=== PATIENT | female | born 1960 | race Caucasian/White ===

== ENCOUNTER 2016-06-15 10:52 | Inpatient (IN) | payer OTHER ==
[~2016-06-15] VITALS: Ht 157.5 cm; Wt 82.7 kg
[2016-06-18] MEDS ORDERED: CALC1TAB87 PO (08:56)
[2016-06-18] MEDS ORDERED: MULT1TAB84 PO (08:56)
[2016-06-18] MEDS ORDERED: [UNRECOGNIZED DRUG - CODE] PO (10:41)
[2016-06-18] MEDS ORDERED: FOLI1TAB4 PO (10:41)
[2016-06-18] MEDS ORDERED: HYDR25TA5 PO (10:41)
[2016-06-18] MEDS ORDERED: NEXI40CA PO (10:41)
[2016-06-18] MEDS ORDERED: EVEN10003 PO (10:42)
[2016-06-18] MEDS ORDERED: MELO-1 PO (10:42)
[2016-06-18] MEDS ORDERED: BIOT1000 PO (10:42)
[2016-06-18] MEDS ORDERED: POTA99TA PO (10:44)
[2016-06-18] MEDS ORDERED: MAGN250T2 PO (10:44)
[2016-06-28] MEDS ORDERED: SODIUM CHLORID 0.9% 500 ML IV SCH (05:45)
[2016-06-28] MEDS ORDERED: INSULIN HUMAN REGULAR 1,000 UNITS/10 ML VIAL SQ PRN (05:45)
[2016-06-28] MEDS ORDERED: METOPROLOL TARTRATE 25 MG TAB PO PRN (05:45)
[2016-06-28] MEDS ORDERED: EXPAREL PERI-ARTICULAR INJECTION (TOTAL VOL. 60 ML) P-ARTICULR SCH ×2 (05:45)
[2016-06-28 05:51] VITALS: BP 154/83; PULSE 99; RESP 16; TEMP 98.7; O2SAT 100
[2016-06-28] MEDS ORDERED: METH2.5T PO (05:51)
[2016-06-28] MEDS: LACTATED RINGER'S 1000 ML IV SCH (05:54)
[2016-06-28] MEDS ORDERED: FAMOTIDINE 20 MG/2 ML VIAL ONE (06:39)
[2016-06-28] MEDS ORDERED: MIDAZOLAM HCL 2 MG/2 ML VIAL ONE (06:39)
[2016-06-28] MEDS ORDERED: DEXAMETHASONE SOD PHOS 4 MG/ML VIAL ONE (06:46)
[2016-06-28] MEDS ORDERED: fentaNYL CITRATE 250 MCG/5 ML AMP ONE (06:49)
[2016-06-28] MEDS ORDERED: ACETAMINOPHEN 1000 MG/100 ML VIAL IV ONE (06:49)
[2016-06-28] MEDS ORDERED: SCOPOLAMINE 1.5 MG PATCH ONE (06:50)
[2016-06-28] MEDS ORDERED: SODIUM CHLORIDE 0.9% FLUSH 5 ML FLUSH IVF PRN (07:00)
[2016-06-28] MEDS ORDERED: Post-op Orders (for Pharmacy) MISC XX ONE (07:00)
[2016-06-28] MEDS ORDERED: oxyCODONE/ACETAMINOPHEN 5 MG/325 MG TAB PO PRN (07:00)
[2016-06-28] MEDS ORDERED: ONDANSETRON HCL 4 MG/2 ML VIAL IVP PRN (07:00)
[2016-06-28] MEDS ORDERED: BISACODYL 10 MG SUPP PR PRN (07:00)
[2016-06-28] MEDS ORDERED: MAGNESIUM HYDROXIDE SUSP 30 ML CUP PO PRN (07:00)
[2016-06-28] MEDS ORDERED: ZOLPIDEM TARTRATE 5 MG TAB PO PRN (07:00)
[2016-06-28] MEDS ORDERED: MORPHINE SULFATE 8 MG/ML INJ IV PUSH PRN (07:00)
[2016-06-28] MEDS ORDERED: ceFAZolin 2 GM PREMIX 50 ML ONE (07:01)
[2016-06-28] MEDS ORDERED: ceFAZolin 2 GM PREMIX 50 ML IV SCH (07:45)
[2016-06-28] MEDS ORDERED: SODIUM CHLORIDE 0.9% IV SCH ×2 (07:45→10:00)
[2016-06-28] MEDS ORDERED: CHLORHEXIDINE GLUCONATE 4% SOLN 120 ML BTL TOP SCH (07:45)
[2016-06-28] MEDS ORDERED: TRANEXAMIC ACID IV SCH ×2 (07:45→10:00)
[2016-06-28] MEDS ORDERED: GENTAMICIN SULFATE 80 MG/2 ML VIAL IRRIGATION ONE (08:26)
[2016-06-28] MEDS: ESTROGEN/METHYLTESTOSTERONE 1.25 MG/2.5 MG TAB PO SCH (09:00)
[2016-06-28] MEDS: HYDROCHLOROTHIAZIDE 25 MG TAB PO SCH (09:00)
[2016-06-28] MEDS: FOLIC ACID 1 MG TAB PO SCH (09:00)
[2016-06-28] MEDS ORDERED: NON-FORMULARY DRUG (Magnesium 250 MG) PO SCH (09:00)
[2016-06-28] MEDS: PANTOPRAZOLE SOD 40 MG DELAYED RELEASE TAB PO SCH (09:00)
[2016-06-28] MEDS ORDERED: NON-FORMULARY DRUG (Biotin 1,000 MG) PO SCH (09:00)
[2016-06-28] MEDS: MULTIVITAMINS/MINERALS THERAPEUTIC TAB PO SCH (09:00)
[2016-06-28] MEDS: ASPIRIN EC 81 MG TABEC PO SCH ×2 (09:00→20:12)
[2016-06-28] MEDS: SODIUM CHLORIDE 0.9% FLUSH 5 ML FLUSH IVF SCH ×2 (09:00→20:12)
[2016-06-28] MEDS ORDERED: EVENING PRIMROSE OIL PO SCH (09:00)
[2016-06-28] MEDS ORDERED: NON-FORMULARY DRUG (Potassium 1 TAB) PO SCH (09:00)
[2016-06-28] MEDS ORDERED: *morphine SULFATE 8 MG/ML PERIprocedure ONLY ONE ×2 (09:38→09:45)
[2016-06-28] MEDS ORDERED: DO NOT ADM ANY ANTICOAGULANT DRUGS XX PRN (09:45)
--- NOTE | 2016-06-28 10:03 | RADRPT ---
EXAM DATE/TIME: 06/28/2016 09:36 [place] COMPARISON: No previous studies available for comparison. INDICATIONS : Post op right hip. MEDICAL HISTORY : None. SURGICAL HISTORY : None. ENCOUNTER: Initial ACUITY: 1 day PAIN SCORE: 8/10 LOCATION: Right pelvis FINDINGS: AP and lateral views of the right hip following recent total arthroplasty demonstrates hardware in pl ar without an acute finding identified. There is soft tissue gas as expected. CONCLUSION: Expected findings are present following recent right total hip arthroplasty. Winston Gilbert MD on June 28, 2016 at 10:01 Board Certified Radiologist. This report was verified electronically.
[2016-06-28] MEDS ORDERED: *HYDROmorphone PF 1 MG VIAL PERIprocedural Use ONLY ONE (10:05)
[2016-06-28] MEDS ORDERED: PROPOFOL 200 MG/20 ML AMP IV ONE (10:21)
[2016-06-28] MEDS ORDERED: ONDANSETRON HCL 4 MG/2 ML VIAL IV PUSH ONE (10:22)
[2016-06-28] MEDS ORDERED: NEOSTIGMINE 3 MG/3 ML SYR IV ONE (10:22)
[2016-06-28] MEDS ORDERED: LACTATED RINGER'S 1000 ML INJ 1,000 ML IV ONE (10:22)
[2016-06-28] MEDS: SODIUM CHLORIDE 0.9% IV SCH (11:00)
[2016-06-28] MEDS: TRANEXAMIC ACID IV SCH (11:00)
[2016-06-28] MEDS: LACTATED RINGER'S 1000 ML INJ 1,000 ML IV SCH ×2 (11:07→19:29)
--- NOTE | 2016-06-28 12:03 | MP ---
cc: Amos BENNETT. DATE OF SURGERY: 06/28/2016 PREOPERATIVE DIAGNOSIS Primary osteoarthritis, right hip. POSTOPERATIVE DIAGNOSIS Primary osteoarthritis, right hip. OPERATION PERFORMED Right total hip arthroplasty using Sarah prosthesis. SURGEON Fidencio Bennett MD DIRECTOR OF PURCHASING Amisha Wagner, MADIE ANESTHESIA General endotracheal with supplemental local. INDICATIONS AND FINDINGS This 55-year-old woman has had longstanding arthritis in her right hip which has been causing significant pain and inability to do activities of daily living for at least the past five months. This has been progressively worsening with groin pain radiating down the thigh to the knee with giving-way and difficulty ascending and descending stairs. She has been treated with anti-inflammatories, analgesics, activity modification, ambulatory aids, physical therapy and exercise without any benefit. Physical findings showed limitation in motion of the hip with tenderness on motion. X-rays and MRI showed advanced arthritis in the hip with loss of articular cartilage to [id number], particularly in the superior aspect with some cysts and osteophytes. Operative findings were consistent with the radiographic findings with there being loss of articular cartilage to exposed subchondral bone in the upper portions of the hip with small osteophytes and significant subchondral sclerosis. The prosthesis used is a Sarah prosthesis with the acetabulum being a 48 mm tritanium cluster cup with two screws and a 0 degree Trident X3 polyethylene insert. The femoral component was an Accolade II size 3 x 132 degrees with a Biolox Delta head size 32 outer diameter with a +0 neck length. PROCEDURE The patient was brought to the clean-air operating suite where a general anesthetic was administered. She was placed in a lateral position on the [facility] lateral positioner with the right hip up. She was then prepped with alcohol, Hibiclens and ChloraPrep and draped in the usual manner with the hip draped free. An appropriate timeout procedure was carried out. A posterolateral approach was used. Local anesthesia was administered. The incision was then made obliquely over the posterolateral aspect of the greater trochanter centered at approximately 12 cm. The incision was deepened through the subcutaneous tissues to the fascia jaime and gluteus fascia which were incised in line with the fibers of the skin incision. A Charnley retractor was inserted. Hemostasis was achieved throughout the procedure with electrocautery. The hip was internally rotated. The external rotators were released off the posterior aspect of the greater trochanter. The capsule was opened with a posteriorly based flap. The hip was dislocated. The femoral neck was transected about 10 mm from the lesser trochanter. An oscillating saw was used to resect the femoral head. The medullary canal was then prepared after retractors were placed using a box osteotome followed by curet to initiate the proximal reaming followed by broaching using appropriate broaches starting at 0 and going up to 3. A size 3 is seated appropriately. Calcar planing was carried out. The hip was repositioned. With retractors in place the soft tissues were cleaned from the acetabulum. Reaming was then carried out starting with a 43 mm reamer until it medialized to the teardrop followed by continued reaming up to size 48. A 48 mm was trialed which was templated and impacted into place and seated appropriately. This was then removed. The 48 mm cluster cup was then impacted into place and seated appropriately. Two additional dome screws were then placed after drilling and sounding. A 0 degree liner was inserted with 32 mm inner diameter. This was impacted into place. The hip was repositioned. The femoral neck trial was positioned for a +4 and then back to a 0 after checking. The leg length at 0 was appropriate with no pistoning and excellent stability and excellent motion. The hip was dislocated again. The stem was removed. Local anesthesia was administered throughout the capsule with Exparel. The femoral component, a size 3 x 132 degrees Accolade II stem, was impacted into place and seated appropriately. A trial reduction was carried out again with the 0 and showed the same findings. The trial prosthesis was removed. The neck was cleaned with saline and dried completely. The Biolox Delta 32 mm x 0 neck length was impacted onto the cleaned and dried trunnion. The hip was reduced. The range of motion was excellent. The stability was excellent. There was no pistoning. The leg length was appropriate. The remainder of the Exparel was injected throughout the hip. The external rotators and capsule were then repaired to the posterior aspect of the greater trochanter through drill holes into bone using a Parker Fadi technique and Krackow technique. After these were repaired into position the sciatic nerve was again inspected and identified as being unmolested throughout the procedure. The fascia jaime and gluteus fascia were repaired with #1 Vicryl interrupted [id number] sutures. The subcutaneous tissue was closed with 2-0 Vicryl interrupted simple sutures with buried knots. The skin was closed with continuous subcuticular closure with 4-0 Monocryl. The wound was dressed with Steri-Strips followed by dry dressing, ABD and Medipore compression hip dressing. The patient was transferred from the operating room to the recovery room in satisfactory condition having tolerated the procedure well. She was in a knee immobilizer on this side. Counts were correct. Specimens none. Estimated blood loss 300 mL. MD RAYNE Gray/VALENTIN /9:23 AM /11:44 AM
--- NOTE | 2016-06-28 13:55 | PD.CONS ---
HPI Service [facility] Consult Requested By Dr. Allan Reason for Consult medical management Primary Care Physician Non-Staff Diagnoses: History of Present Illness patient is a 55 y/o female with history of osteoarthritis and rheumatoid arthritis who underwent right total hip arthroplasty today. at the time of my evaluation she was resting comfortably with no distress. pain was controlled at the time of my evaluation. she denies any chest pain, sob, nausea or vomiting. Review of Systems Constitutional: DENIES: Fever, Weight loss, Chills, Night Sweats Eyes: DENIES: Blurred vision, Diplopia, Vision loss, Double Vision Ears, nose, mouth, throat: DENIES: Tinnitus, Vertigo, Throat pain, Epistaxis Respiratory: DENIES: Apneas, Cough, Snoring, Wheezing, Hemoptysis, Sputum production, Shortness of breath Cardiovascular: DENIES: Chest pain, Palpitations, Syncope, Dyspnea on Exertion , PND, Lower Extremity Edema, Orthopnea, Claudication Gastrointestinal: DENIES: Abdominal pain, Black stools, Bloody stools, Constipation, Diarrhea, Nausea, Vomiting, Difficulty Swallowing, Anorexia Genitourinary: DENIES: Urinary frequency, Urgency, Hematuria, Dysuria Musculoskeletal: DENIES: Joint pain, Muscle aches, Stiffness, Joint Swelling Integumentary: DENIES: Rash Neurologic: DENIES: Abnormal gait, Headache, Localized weakness, Paresthesias, Seizures, Speech Problems, Tremor, Poor Balance Psychiatric: DENIES: Anxiety, Confusion, Mood changes, Depression, Hallucinations, Agitation, Suicidal Ideation, Homicidal Ideation, Delusions Past Family Social History Allergies: Coded Allergies: No Known Allergies (Unverified , 06/18/16) Past Medical History osteoarthritis rheumatoid arthritis Past Surgical History partial hysterectomy cyst removal from the foot Reported Medications HCTZ methotrexate folic acid meloxicam nexium estrogen Active Ordered Medications Current Medications Bupivacaine Liposome 20 ml/ Sodium Chloride 60 ml @ 120 mls/hr ONCE P-ARTICULR Last administered on 06/28/16 07:42; Start 06/28/16 at 05:45; Stop 06/28/16 at 16:00 Lactated Ringer's 1,000 ml @ 30 mls/hr Q24H IV Last administered on 06/28/16 05:54; Start 06/28/16 at 05:45 Sodium Chloride (NS 500 ml Inj) 500 ml @ 30 mls/hr [id number] IV ; Start 06/28/16 at 05:45; Stop 06/29/16 at 05:44 Insulin Human Regular (NovoLIN R INJ) See Protocol Table ... UNSCH X1 PRN SQ SEE PROTOCOL; Start 06/28/16 at 05:45; Stop 06/29/16 at 05:44 Metoprolol Tartrate (Lopressor) 25 mg UNSCH X1 PRN PO SEE LABEL COMMENTS; Start 06/28/16 at 05:45; Stop 06/29/16 at 05:44 Midazolam HCl (Versed Inj) 2 mg STK-MED ONCE .ROUTE Last administered on 06:42; Start 06/28/16 at 06:39; Stop 06/28/16 at 06:43; Status DC Famotidine (Pepcid Inj) 20 mg STK-MED ONCE .ROUTE Last administered on 06:40; Start 06/28/16 at 06:39; Stop 06/28/16 at 06:43; Status DC Dexamethasone Sodium Phosphate (Decadron Inj) 4 mg STK-MED ONCE .ROUTE Last administered on 06/28/16 06:46; Start 06/28/16 at 06:46; Stop 06/28/16 at 06:47; Status DC Acetaminophen (Ofirmev Inj) 1,000 mg STK-MED ONCE IV ; Start 06/28/16 at 06:49; Stop 06/28/16 at 06:50; Status DC Fentanyl Citrate (fentaNYL INJ) 100 mcg STK-MED ONCE .ROUTE ; Start 06/28/16 at 06:49; Stop 06/28/16 at 06:50; Status DC Fentanyl Citrate (fentaNYL INJ) 250 mcg STK-MED ONCE .ROUTE ; Start 06/28/16 at 06:49; Stop 06/28/16 at 06:50; Status DC Scopolamine 1 patch 1 patch STK-MED ONCE .ROUTE ; Start 06/28/16 at 06:50; Stop 06/28/16 at 06:51; Status DC Cefazolin Sodium/ Dextrose 50 ml @ As Directed STK-MED ONCE .ROUTE ; Start at 07:01; Stop 06/28/16 at 07:02; Status DC Lactated Ringer's (Lr 1000 ml Inj) 1,000 ml @ 80 mls/hr [id number] IV Last administered on 06/28/16 11:07; Start 06/28/16 at 06:59 IV Flush (NS Flush) 2 ml UNSCH PRN IVF FLUSH AFTER USING IV ACCESS; Start at 07:00 IV Flush 2 ml 2 ml BID IVF ; Start 06/28/16 at 09:00 Cefazolin Sodium/ Sodium Chloride (Ancef Inj/NS Inj) 100 ml @ 200 mls/hr Q6H IV Last administered on 06/28/16 13:00; Start 06/28/16 at 13:00; Stop 06/29/16 at 01:29 Miscellaneous Information (Post-op Orders (for Pharmacy)) STAT ONCE XX ; Start 06/28/16 at 07:00; Stop 06/28/16 at 08:59; Status DC Morphine Sulfate (Morphine Inj) 5 mg Q3H PRN IV PUSH Pain >7 when off PERINATAL SPECIALIST; Start 06/28/16 at 07:00 Oxycodone/ Acetaminophen (Percocet 5-325 Mg) 1 tab Q4H PRN PO PAIN LESS THAN 5 ON SCALE; Start 06/28/16 at 07:00 Oxycodone/ Acetaminophen 2 tab 2 tab Q4H PRN PO PAIN SCALE 5 TO 7; Start at 07:00 Tranexamic Acid/ Sodium Chloride (Cyklokapron Inj/ NS Inj) 108.27 ml @ 200 mls / hr UNSCH IV ; Start 06/28/16 at 10:00; Stop 06/28/16 at 16:00 Ondansetron HCl (Zofran Inj) 4 mg Q6H PRN IVP NAUSEA OR VOMITING; Start at 07:00 Docusate Sodium (Colace) 100 mg BID PO ; Start 06/29/16 at 21:00 Zolpidem Tartrate (Ambien) 5 mg HS PRN PO SLEEP; Start 06/28/16 at 07:00 Bisacodyl (Dulcolax Supp) 10 mg DAILY PRN MD CONSTIPATION; Start 06/28/16 at 07: 00 Magnesium Hydroxide (Milk Of Magnesia Liq) 30 ml DAILY PRN PO CONSTIPATION; Start 06/28/16 at 07:00 Aspirin (Ecotrin Ec) 81 mg BID PO ; Start 06/28/16 at 09:00 Estrogens Conjugated/ Methyltestost (Estratest) 1 tab DAILY PO ; Start 06/28/16 at 09:00 Folic Acid (Folate) 1 mg DAILY PO ; Start 06/28/16 at 09:00 Hydrochlorothiazide (Hydrodiuril) 25 mg DAILY PO ; Start 06/28/16 at 09:00 Multivitamins/ Minerals Therapeutic (Theragran M Tab) 1 tab DAILY PO ; Start 06/28/16 at 09:00 Non-Formulary Medication 1,000 mg DAILY PO ; Start 06/28/16 at 09:00; Stop at 09:00; Status DC Pantoprazole Sodium (Protonix) 40 mg DAILY PO ; Start 06/28/16 at 09:00 Non-Formulary Medication 3 cap DAILY PO ; Start 06/28/16 at 09:00; Stop 06/28/16 at 09:00; Status DC Non-Formulary Medication 250 mg DAILY PO ; Start 06/28/16 at 09:00; Stop 06/28/16 at 09:00; Status DC Non-Formulary Medication 1 tab DAILY PO ; Start 06/28/16 at 09:00; Stop 06/28/16 at 09:00; Status DC Chlorhexidine Gluconate 1 applic 1 applic ONCE TOP ; Start 06/28/16 at 07:45; Stop 07/01/16 at 07:44 Cefazolin Sodium/ Dextrose 50 ml @ 100 mls/hr VOLUNTEER RECRUITMENT COORDINATOR IV Last administered on 06/28/16 07:24; Start 06/28/16 at 07:45; Stop 07/01/16 at 07:44 Tranexamic Acid 827 mg/Sodium Chloride 108.27 ml @ 200 mls/ hr ONCE IV Last administered on 06/28/16 07:45; Start 06/28/16 at 07:45; Stop 06/28/16 at 16:00 Tranexamic Acid/ Sodium Chloride (Cyklokapron Inj/ NS Inj) 108.27 ml @ 200 mls / hr ONCE IV Last administered on 06/28/16 11:00; Start 06/28/16 at 11:00; Stop 06/29/16 at 18:00 Gentamicin Sulfate (Gentamicin Inj) 240 mg STK-MED ONCE IRRIGATION Last administered on 06/28/16 08:26; Start 06/28/16 at 08:26; Stop 06/28/16 at 08:29; Status DC Morphine Sulfate (*morphine INJ PERIprocedure ONLY) 8 mg STK-MED ONCE .ROUTE Last administered on 06/28/16 09:38; Start 06/28/16 at 09:38; Stop 06/28/16 at 09: 39; Status DC Miscellaneous Information ALL NURSING DEPARTME... UNSCH PRN XX SEE LABEL COMMENTS; Start 06/28/16 at 09:45; Stop 06/29/16 at 09:44 Morphine Sulfate (*morphine INJ PERIprocedure ONLY) 8 mg STK-MED ONCE .ROUTE Last administered on 06/28/16 09:45; Start 06/28/16 at 09:45; Stop 06/28/16 at 09: 46; Status DC Hydromorphone HCl (*DILAUDID PF INJ PERIprocedural ONLY) 1 mg STK-MED ONCE .ROUTE Last administered on 06/28/16 10:05; Start 06/28/16 at 10:05; Stop at 10:06; Status DC Family History heart disease in father and stroke in mother. Social History quit smoking years ago- drinks occasionally. Physical Exam Vital Signs Vital Signs Date Time Temp Pulse Resp B/P Pulse Ox O2 Delivery O2 Flow Rate FiO2 06/28/16 13:00 61 16 118/73 99 Nasal Cannula 2 06/28/16 12:30 70 16 122/67 99 Nasal Cannula 2 06/28/16 12:00 90 16 118/71 99 Nasal Cannula 2 06/28/16 11:30 64 16 121/70 99 Nasal Cannula 3 06/28/16 11:00 60 17 120/74 99 Nasal Cannula 3 06/28/16 10:45 77 15 119/71 99 Nasal Cannula 3 06/28/16 10:30 64 15 119/75 100 Nasal Cannula 3 06/28/16 10:15 73 14 136/80 100 Nasal Cannula 3 06/28/16 10:00 66 15 135/72 99 Nasal Cannula 3 06/28/16 09:45 70 14 122/76 99 Nasal Cannula 3 06/28/16 09:31 97.9 73 14 140/74 99 Nasal Cannula 3 06/28/16 05:51 98.7 99 16 154/83 100 Physical Exam GENERAL: This is a well-nourished, well-developed patient, in no apparent distress. SKIN: No rashes, ecchymoses or lesions. Cool and dry. HEAD: Atraumatic. Normocephalic. No temporal or scalp tenderness. EYES: Pupils equal round and reactive. Extraocular motions intact. No scleral icterus. No injection or drainage. ENT: Nose without bleeding, purulent drainage or septal hematoma. Throat without erythema, tonsillar hypertrophy or exudate. Uvula midline. Airway patent. NECK: Trachea midline. No JVD or lymphadenopathy. Supple, nontender, no meningeal signs. CARDIOVASCULAR: Regular rate and rhythm without murmurs, gallops, or rubs. RESPIRATORY: Clear to auscultation. Breath sounds equal bilaterally. No wheezes , rales, or rhonchi. GASTROINTESTINAL: Abdomen soft, non-tender, nondistended. No hepato-splenomegaly , or palpable masses. No guarding. MUSCULOSKELETAL: Extremities without clubbing, cyanosis, or edema. No joint tenderness, effusion, or edema noted. No calf tenderness. Negative Homans sign bilaterally. NEUROLOGICAL: Awake and alert. Cranial nerves II through XII intact. Motor and sensory grossly within normal limits. Five out of 5 muscle strength in all muscle groups. Normal speech. Laboratory Laboratory Tests Test 06/28/16 05:50 Blood Type A POSITIVE Antibody Screen NEGATIVE Assessment and Plan Assessment and Plan A/P - osteoarthritis of the right hip- s/p right total hip arthroplasty continue with pain control and rehab efforts- management per ortho -rheumatoid arthritis; resume methotrexate and folic acid -DVT prophylaxis- per ortho thank you for the consult. Discussed Condition With the patient. Anais Diaz MD Jun 28, 2016 13:55
[2016-06-28 15:05] VITALS: BP 118/59; PULSE 80; RESP 18; TEMP 97.6; O2SAT 100
[2016-06-28] MEDS: oxyCODONE/ACETAMINOPHEN 5 MG/325 MG TAB PO PRN (17:23)
[2016-06-28 20:00] VITALS: BP 129/59; PULSE 84; RESP 16; TEMP 98.5; O2SAT 98
[2016-06-28 22:02] VITALS: O2SAT 100
[2016-06-29] VITALS: BP 114/55; PULSE 72; RESP 16; TEMP 98.7; O2SAT 98
[2016-06-29 04:00] VITALS: BP 117/57; PULSE 86; RESP 17; TEMP 98.9; O2SAT 100
[2016-06-29] MEDS: oxyCODONE/ACETAMINOPHEN 5 MG/325 MG TAB PO PRN ×2 (05:08→09:35)
[2016-06-29] MEDS: LACTATED RINGER'S 1000 ML IV SCH (05:45)
--- NOTE | 2016-06-29 06:18 | PD.ORT.PN ---
Subjective Post Op Day #: 1 Subjective Remarks She is doing well, with minimal incisional pain. Distance Walked 45 feet. Objective Vitals Vital Signs Date Time Temp Pulse Resp B/P Pulse Ox O2 Delivery O2 Flow Rate FiO2 06/29/16 04:00 98.9 86 17 117/57 100 06/29/16 00:00 98.7 72 16 114/55 98 06/28/16 22:02 100 21 06/28/16 20:00 98.5 84 16 129/59 98 06/28/16 15:05 97.6 80 18 118/59 100 06/28/16 14:00 97.6 85 17 126/73 98 Room Air 06/28/16 13:00 61 16 118/73 99 Nasal Cannula 2 06/28/16 12:30 70 16 122/67 99 Nasal Cannula 2 06/28/16 12:00 90 16 118/71 99 Nasal Cannula 2 06/28/16 11:30 64 16 121/70 99 Nasal Cannula 3 06/28/16 11:00 60 17 120/74 99 Nasal Cannula 3 06/28/16 10:45 77 15 119/71 99 Nasal Cannula 3 06/28/16 10:30 64 15 119/75 100 Nasal Cannula 3 06/28/16 10:15 73 14 136/80 100 Nasal Cannula 3 06/28/16 10:00 66 15 135/72 99 Nasal Cannula 3 06/28/16 09:45 70 14 122/76 99 Nasal Cannula 3 06/28/16 09:31 97.9 73 14 140/74 99 Nasal Cannula 3 I/O 06/28/16 06/28/16 06/28/16 06/29/16 06/29/16 06/29/16 07:00 15:00 23:00 07:00 15:00 23:00 Intake Total 1850 ml 240 ml 1422 ml Output Total 250 ml Balance 1600 ml 240 ml 1422 ml Intake Oral 240 ml IV Total 750 ml 1422 ml Other 1100 ml Output Urine Total 0 ml Estimated Blood Loss 250 ml # Voids 0 1 # Bowel Movements 0 Imaging Last 24 hours Impressions Hip X-Ray 06/28/16 0659 Signed Impressions: Service Date/Time: Tuesday, June 28, 2016 09:36 - CONCLUSION: Expected findings are present following recent right total hip arthroplasty. Winston Gilbert MD Objective Remarks Resting comfortably, supine in bed. The original dressing is dry and intact. The neurovascular status is intact. Assessment & Plan Ortho Post Op Day #: 1 Problem List: (1) Status post total hip replacement, right Assessment and Plan Condition: Good. Orthopaedically stable. DVT prophylaxis: TEDs, sequentials, ASA. Discharge plans: Home with [facility]. Has appointment. Rx Percocet Neida Allan MD (Charles) Jun 29, 2016 06:18
[2016-06-29] MEDS ORDERED: ASPI81TA11 PO (06:36)
[2016-06-29] MEDS ORDERED: OXYC1TAB63 PO (06:36)
--- NOTE | 2016-06-29 06:40 | HHI.FF ---
Face to Face Verification Diagnosis: (1) Status post total hip replacement, right Physical Therapy Gait training Hip: Total hip, Protocol: Right, Posterior hip precautions, Progress to weight bearing Canvas Knee Splint: When in bed & 2 pillows btw thighs Right LE Weight Bearing: WB as tolerated Right LE Range of Motion: Active ROM Nursing Nursing: Dressing changes Dressing Changes: Daily dressing change, Coverderm/Primapore Additional Instructions Remove steristrips on postop day 14. I have seen patient Gabriella Obrien on 06/29/16. My clinical findings support the need for the requested home health care services because: Ltd mobility - disease progression Limited ability to care for self High risk of falls I certify that my clinical findings support that this patient is homebound because: Post-op weakness Unsteady gait/balance Unsafe to leave home unassisted Neida Allan MD (Charles) Jun 29, 2016 06:40
[2016-06-29 07:18] LABS: HEMATOCRIT 31.8 % (35.0-46.0); REVIEW FLAG FINAL
[2016-06-29] MEDS: LACTATED RINGER'S 1000 ML INJ 1,000 ML IV SCH (07:59)
[2016-06-29 08:00] VITALS: BP 122/63; PULSE 75; RESP 18; TEMP 98.8; O2SAT 99
[2016-06-29 08:37] VITALS: O2SAT 98
[2016-06-29] MEDS: ESTROGEN/METHYLTESTOSTERONE 1.25 MG/2.5 MG TAB PO SCH (09:00)
[2016-06-29] MEDS ORDERED: MAGNESIUM HYDROXIDE SUSP 30 ML CUP PO SCH (09:15)
[2016-06-29] MEDS: ASPIRIN EC 81 MG TABEC PO SCH (09:33)
[2016-06-29] MEDS: HYDROCHLOROTHIAZIDE 25 MG TAB PO SCH (09:33)
[2016-06-29] MEDS: PANTOPRAZOLE SOD 40 MG DELAYED RELEASE TAB PO SCH (09:33)
[2016-06-29] MEDS: FOLIC ACID 1 MG TAB PO SCH (09:33)
[2016-06-29] MEDS: MULTIVITAMINS/MINERALS THERAPEUTIC TAB PO SCH (09:33)
[2016-06-29] MEDS: SODIUM CHLORIDE 0.9% FLUSH 5 ML FLUSH IVF SCH (09:38)
[2016-06-29] MEDS: TRANEXAMIC ACID IV SCH (11:00)
[2016-06-29] MEDS: SODIUM CHLORIDE 0.9% IV SCH (11:00)
--- NOTE | 2016-06-29 11:20 | HHI.PR ---
Subjective Remarks resting comfortably with no distress. pain is controlled. no new complaints. Objective Vitals Vital Signs Date Time Temp Pulse Resp B/P Pulse Ox O2 Delivery O2 Flow Rate FiO2 06/29/16 08:37 98 21 06/29/16 08:00 98.8 75 18 122/63 99 06/29/16 04:00 98.9 86 17 117/57 100 06/29/16 00:00 98.7 72 16 114/55 98 06/28/16 22:02 100 21 06/28/16 20:00 98.5 84 16 129/59 98 06/28/16 15:05 97.6 80 18 118/59 100 06/28/16 14:00 97.6 85 17 126/73 98 Room Air 06/28/16 13:00 61 16 118/73 99 Nasal Cannula 2 06/28/16 12:30 70 16 122/67 99 Nasal Cannula 2 06/28/16 12:00 90 16 118/71 99 Nasal Cannula 2 06/28/16 11:30 64 16 121/70 99 Nasal Cannula 3 I/O 06/28/16 06/28/16 06/28/16 06/29/16 06/29/16 06/29/16 07:00 15:00 23:00 07:00 15:00 23:00 Intake Total 1850 ml 240 ml 1662 ml Output Total 250 ml Balance 1600 ml 240 ml 1662 ml Intake Oral 240 ml 240 ml IV Total 750 ml 1422 ml Other 1100 ml Output Urine Total 0 ml Estimated Blood Loss 250 ml # Voids 0 1 2 # Bowel Movements 0 0 Result Diagram: 06/29/16 0703 Imaging Last Impressions Hip X-Ray 06/28/16 0659 Signed Impressions: Service Date/Time: Tuesday, June 28, 2016 09:36 - CONCLUSION: Expected findings are present following recent right total hip arthroplasty. Winston Gilbert MD Objective Remarks GENERAL: This is a well-nourished, well-developed patient, in no apparent distress. CARDIOVASCULAR: Regular rate and regular rhythm without murmurs, gallops, or rubs. RESPIRATORY: Clear to auscultation. Breath sounds equal bilaterally. No wheezes , rales, or rhonchi. GASTROINTESTINAL: Abdomen soft, non-tender, nondistended. Normal, active bowel sounds MUSCULOSKELETAL: Extremities without clubbing, cyanosis, or edema. NEURO: Alert & Oriented x4 to person, place, time, situation. Moves all ext x4 Medications and IVs Current Medications Bupivacaine Liposome 20 ml/ Sodium Chloride 60 ml @ 120 mls/hr ONCE P-ARTICULR Last administered on 06/28/16 07:42; Start 06/28/16 at 05:45; Stop 06/28/16 at 16:00; Status DC Lactated Ringer's 1,000 ml @ 30 mls/hr Q24H IV Last administered on 06/28/16 05:54; Start 06/28/16 at 05:45 Sodium Chloride (NS 500 ml Inj) 500 ml @ 30 mls/hr [id number] IV ; Start 06/28/16 at 05:45; Stop 06/29/16 at 05:44; Status DC Insulin Human Regular (NovoLIN R INJ) See Protocol Table ... UNSCH X1 PRN SQ SEE PROTOCOL; Start 06/28/16 at 05:45; Stop 06/29/16 at 05:44; Status DC Metoprolol Tartrate (Lopressor) 25 mg UNSCH X1 PRN PO SEE LABEL COMMENTS; Start 06/28/16 at 05:45; Stop 06/29/16 at 05:44; Status DC Midazolam HCl (Versed Inj) 2 mg STK-MED ONCE .ROUTE Last administered on 06:42; Start 06/28/16 at 06:39; Stop 06/28/16 at 06:43; Status DC Famotidine (Pepcid Inj) 20 mg STK-MED ONCE .ROUTE Last administered on 06:40; Start 06/28/16 at 06:39; Stop 06/28/16 at 06:43; Status DC Dexamethasone Sodium Phosphate (Decadron Inj) 4 mg STK-MED ONCE .ROUTE Last administered on 06/28/16 06:46; Start 06/28/16 at 06:46; Stop 06/28/16 at 06:47; Status DC Acetaminophen (Ofirmev Inj) 1,000 mg STK-MED ONCE IV ; Start 06/28/16 at 06:49; Stop 06/28/16 at 06:50; Status DC Fentanyl Citrate (fentaNYL INJ) 100 mcg STK-MED ONCE .ROUTE ; Start 06/28/16 at 06:49; Stop 06/28/16 at 06:50; Status DC Fentanyl Citrate (fentaNYL INJ) 250 mcg STK-MED ONCE .ROUTE ; Start 06/28/16 at 06:49; Stop 06/28/16 at 06:50; Status DC Scopolamine 1 patch 1 patch STK-MED ONCE .ROUTE ; Start 06/28/16 at 06:50; Stop 06/28/16 at 06:51; Status DC Cefazolin Sodium/ Dextrose 50 ml @ As Directed STK-MED ONCE .ROUTE ; Start at 07:01; Stop 06/28/16 at 07:02; Status DC Lactated Ringer's (Lr 1000 ml Inj) 1,000 ml @ 80 mls/hr [id number] IV Last administered on 06/28/16 11:07; Start 06/28/16 at 06:59 IV Flush (NS Flush) 2 ml UNSCH PRN IVF FLUSH AFTER USING IV ACCESS; Start at 07:00 IV Flush 2 ml 2 ml BID IVF Last administered on 06/29/16 09:38; Start 06/28/16 at 09:00 Cefazolin Sodium/ Sodium Chloride (Ancef Inj/NS Inj) 100 ml @ 200 mls/hr Q6H IV Last administered on 06/29/16 00:57; Start 06/28/16 at 13:00; Stop 06/29/16 at 01:29; Status DC Miscellaneous Information (Post-op Orders (for Pharmacy)) STAT ONCE XX ; Start 06/28/16 at 07:00; Stop 06/28/16 at 08:59; Status DC Morphine Sulfate (Morphine Inj) 5 mg Q3H PRN IV PUSH Pain >7 when off [employer]; Start 06/28/16 at 07:00 Oxycodone/ Acetaminophen (Percocet 5-325 Mg) 1 tab Q4H PRN PO PAIN LESS THAN 5 ON SCALE Last administered on 06/29/16 09:35; Start 06/28/16 at 07:00 Oxycodone/ Acetaminophen 2 tab 2 tab Q4H PRN PO PAIN SCALE 5 TO 7; Start at 07:00 Tranexamic Acid/ Sodium Chloride (Cyklokapron Inj/ NS Inj) 108.27 ml @ 200 mls / hr UNSCH IV ; Start 06/28/16 at 10:00; Stop 06/28/16 at 16:00; Status DC Ondansetron HCl (Zofran Inj) 4 mg Q6H PRN IVP NAUSEA OR VOMITING; Start at 07:00 Docusate Sodium (Colace) 100 mg BID PO ; Start 06/29/16 at 21:00 Zolpidem Tartrate (Ambien) 5 mg HS PRN PO SLEEP; Start 06/28/16 at 07:00 Bisacodyl (Dulcolax Supp) 10 mg DAILY PRN [place] CONSTIPATION; Start 06/28/16 at 07: 00 Magnesium Hydroxide (Milk Of Magnesia Liq) 30 ml DAILY PRN PO CONSTIPATION; Start 06/28/16 at 07:00; Stop 06/29/16 at 09:13; Status DC Aspirin (Ecotrin Ec) 81 mg BID PO Last administered on 06/29/16 09:33; Start at 09:00 Estrogens Conjugated/ Methyltestost (Estratest) 1 tab DAILY PO ; Start 06/28/16 at 09:00 Folic Acid (Folate) 1 mg DAILY PO Last administered on 06/29/16 09:33; Start at 09:00 Hydrochlorothiazide (Hydrodiuril) 25 mg DAILY PO Last administered on 06/29/16 09:33; Start 06/28/16 at 09:00 Multivitamins/ Minerals Therapeutic (Theragran M Tab) 1 tab DAILY PO Last administered on 06/29/16 09:33; Start 06/28/16 at 09:00 Non-Formulary Medication 1,000 mg DAILY PO ; Start 06/28/16 at 09:00; Stop at 09:00; Status DC Pantoprazole Sodium (Protonix) 40 mg DAILY PO Last administered on 06/29/16 09: 33; Start 06/28/16 at 09:00 Non-Formulary Medication 3 cap DAILY PO ; Start 06/28/16 at 09:00; Stop 06/28/16 at 09:00; Status DC Non-Formulary Medication 250 mg DAILY PO ; Start 06/28/16 at 09:00; Stop 06/28/16 at 09:00; Status DC Non-Formulary Medication 1 tab DAILY PO ; Start 06/28/16 at 09:00; Stop 06/28/16 at 09:00; Status DC Chlorhexidine Gluconate 1 applic 1 applic ONCE TOP ; Start 06/28/16 at 07:45; Stop 07/01/16 at 07:44 Cefazolin Sodium/ Dextrose 50 ml @ 100 mls/hr [employer]AF[employer] SPECIALIST IV Last administered on 06/28/16 07:24; Start 06/28/16 at 07:45; Stop 07/01/16 at 07:44 Tranexamic Acid 827 mg/Sodium Chloride 108.27 ml @ 200 mls/ hr ONCE IV Last administered on 06/28/16 07:45; Start 06/28/16 at 07:45; Stop 06/28/16 at 16:00; Status DC Tranexamic Acid/ Sodium Chloride (Cyklokapron Inj/ NS Inj) 108.27 ml @ 200 mls / hr ONCE IV Last administered on 06/28/16 11:00; Start 06/28/16 at 11:00; Stop 06/29/16 at 18:00 Gentamicin Sulfate (Gentamicin Inj) 240 mg STK-MED ONCE IRRIGATION Last administered on 06/28/16 08:26; Start 06/28/16 at 08:26; Stop 06/28/16 at 08:29; Status DC Morphine Sulfate (*morphine INJ PERIprocedure ONLY) 8 mg STK-MED ONCE .ROUTE Last administered on 06/28/16 09:38; Start 06/28/16 at 09:38; Stop 06/28/16 at 09: 39; Status DC Miscellaneous Information ALL NURSING DEPARTME... UNSCH PRN XX SEE LABEL COMMENTS; Start 06/28/16 at 09:45; Stop 06/29/16 at 09:44; Status DC Morphine Sulfate (*morphine INJ PERIprocedure ONLY) 8 mg STK-MED ONCE .ROUTE Last administered on 06/28/16 09:45; Start 06/28/16 at 09:45; Stop 06/28/16 at 09: 46; Status DC Hydromorphone HCl (*DILAUDID PF INJ PERIprocedural ONLY) 1 mg STK-MED ONCE .ROUTE Last administered on 06/28/16 10:05; Start 06/28/16 at 10:05; Stop at 10:06; Status DC Magnesium Hydroxide (Milk Of Magnpablito Liq) 30 ml BID PO Last administered on t 09:34; Start 06/29/16 at 09:15 Sennosides (Senokot) 17.2 mg HS PO ; Start 06/29/16 at 21:00 A/P Assessment and Plan - osteoarthritis of the right hip- s/p right total hip arthroplasty continue with pain control and rehab efforts- management per ortho -anemia- post-op; will monitor for now -rheumatoid arthritis; resumed methotrexate and folic acid -DVT prophylaxis-on aspirin per ortho Discharge Planning dc planning per ortho. Anais Diaz MD Jun 29, 2016 11:20
[2016-06-29 12:00] VITALS: BP 123/62; PULSE 87; RESP 18; TEMP 98.4; O2SAT 97
[2016-06-29] MEDS ORDERED: DOCUSATE SODIUM 100 MG CAP PO SCH (21:00)
[2016-06-29] MEDS ORDERED: SENNOSIDES 8.6 MG TAB PO SCH (21:00)
== END 2016-06-29 15:56 | disposition home health service (06) | DRG 470 ==
LOC: HSDI 06-28 05:12 → N06A 06-28 14:57
PROVIDERS: ADMIT Orthopaedic Surgery; ATTEND Orthopaedic Surgery
PROC: 0SR902A Replacement of Right Hip Joint with Metal on Polyethylene Synthetic Substitute, Uncemented, Open Approach (ICD-10-PCS; principal; 2016-06-28 06:55)
DX: M16.11 Unilateral primary osteoarthritis, right hip (principal); M06.9 Rheumatoid arthritis, unspecified; D64.9 Anemia, unspecified; Z87.891 Personal history of nicotine dependence
CPT/HCPCS: 73502; 85014; 85018; 86850; 86900; 86901; 94150; C1776; C9290; J0131; J0690; J1100; J1170; J1580; J2250; J2270; J2405; J2710; J3010; J7120; L1830

== ENCOUNTER → 2016-06-18 | Outpatient (CLI) | payer OTHER ==
[~2016-06-18] MED LIST: ASPI81TA11 PO; BIOT1000 PO; BIOT10004 PO; CALC1TAB87 PO; EVEN10003 PO; FOLI1TAB4 PO; HYDR-2768 PO; HYDR25TA5 PO; MAGN250T2 PO; MELO-1 PO; METH2.5T PO; MULT-65 PO; MULT1TAB84 PO; NEXI40CA PO; OXYC1TAB63 PO; POTA75TA2 OR; POTA99TA PO; VITA50LO PO; [UNRECOGNIZED DRUG - CODE] PO
[2016-06-18 09:09] LABS: HEMATOCRIT 38.7 % (35.0-46.0); MEAN CELL VOLUME 97.2 FL (80.0-100.0); MEAN CORPUSCULAR HEMOGLOBIN 32.4 PG (27.0-34.0); MEAN CORPUSCULAR HGB CONC 33.4 % (32.0-36.0); PLATELET COUNT 230 TH/MM3 (150-450); RED BLOOD COUNT 3.98 MIL/MM3 (4.00-5.30); RED CELL DISTRIBUTION WIDTH 13.5 % (11.6-17.2); REVIEW FLAG FINAL; WHITE BLOOD COUNT 5.4 TH/MM3 (4.0-11.0)
[2016-06-18 09:15] LABS: PROTHROMBIN TIME - PATIENT 10.9 SEC (9.8-11.6)
[2016-06-18 09:25] LABS: BLOOD, URINE NEG (NEG); GLUCOSE,URINE NEG (NEG); KETONE, URINE NEG (NEG); NITRITE,URINE NEG (NEG); URINE COLOR YELLOW (YELLW/STRAW)
[2016-06-18 09:28] LABS: COMMENT (UR) CATH-CULT NOT IND; CULTURE IF INDICATED CATH CULTURE NOT IND
[2016-06-18 09:29] LABS: BICARBONATE 31.1 MEQ/L (21.0-32.0); POTASSIUM 3.7 MEQ/L (3.5-5.1)
--- NOTE | 2016-06-18 21:58 | EKG ---
Date Performed: 06/18/2016 Time Performed: 08:06:47 PTAGE: 55 years EKG: Sinus rhythm BORDERLINE LEFT AXIS DEVIATION INCOMPLETE RIGHT BUNDLE BRANCH BLOCK MINIMAL VOLTAGE CRITERIA FOR LVH , CONSIDER NORMAL VARIANT BORDERLINE ECG NO PREVIOUS TRACING DOCTOR: Rex Draper Interpretating Date/Time 06/18/2016 21:57:28
== END ==
LOC: CPRE 07:45
PROVIDERS: ATTEND Orthopaedic Surgery
DX: Z01.810 Encounter for preprocedural cardiovascular examination (principal); Z01.812 Encounter for preprocedural laboratory examination; M16.11 Unilateral primary osteoarthritis, right hip; I10 Essential (primary) hypertension; M79.609 Pain in unspecified limb
CPT/HCPCS: 36415; 80048; 81001; 85027; 85610; 85730; 93005